=== PATIENT | male | born 1940 | race African-American/Black ===

== ENCOUNTER 2016-03-01 03:10 | Emergency (ER) | payer MEDICARE, OTHER ==
[2016-03-01] MEDS ORDERED: ONDANSETRON 4 MG VIAL ONE (04:49)
[2016-03-01] MEDS ORDERED: DILAUDID 1 MG/ML AMP ONE ×2 (04:49→06:36)
== END 2016-03-01 07:15 | disposition home or self-care (01) ==
LOC: ER 03:10
DX: N20.1 Calculus of ureter (principal); I10 Essential (primary) hypertension
CPT/HCPCS: 36415; 74176; 80053; 81001; 85025; 87088; 96374; 96375; 96376; 99284; J1170; J2405